=== PATIENT | male | born 1960 | race Caucasian/White ===

== ENCOUNTER 2017-05-23 17:57 | Emergency (ER) | payer OTHER ==
--- NOTE | 2017-05-25 19:28 | ED CLINICAL REPORT ---
Clinical Report - Physicians/Mid Levels [facility] [address] [place] [address] 05/23/2017 18:00 Patient: ZIA TRAMMELL Time Seen: 1825; initial patient contact. Arrived- By private vehicle. Historian- patient. HISTORY OF PRESENT ILLNESS Chief Complaint: SUICIDAL THOUGHTS. This started today. Recent drug use and alcohol consumption. Has been depressed and had suicidal thoughts. No delusions, self-injury inflicted or hallucinations. The symptoms are described as severe. No injury is present. Additional history - reports chronic back pain. states he is sick of it and doesn't want to live with it any more. states he spoke to spine surgeons and states they are "quacks". no numbness, weakness, tingling, inconctinence, urinary retention, saddle anesthesia, or fever. Similar symptoms previously: None. Recent medical care: Not recently seen/assessed. REVIEW OF SYSTEMS No headache, chest pain, abdominal pain, vomiting or black stools. No fever, sore throat, cough, difficulty breathing or skin rash. No enlarged lymph nodes. patient notes that his problems started with injury to his left foot. He suffered a fractured foot and due to that has had chronic pain in the foot and compensation gait that causes pain in the right hip and back. Has seen various surgeons about the foot and the latest one at [facility] will not operate on the left foot. He states he gets into pain and cannot get any prescription stronger than Tylenol from his PCP. As a result he binge drinks due to the pain and this is cause problems with his family and alcohol dependence. He has not seen the pain clinic. His frustration with the pain and the family's angry response to his alcohol binging have caused to feel suicidal. All systems otherwise negative, except as recorded above. PAST HISTORY See nurses notes. Depression. No history of prior suicide attempt. Alcoholism. No history of psychiatric illness. Medications: Simvastatin Oral. Metoprolol Tartrate Oral. Allergies: LIsinopril. Penicillins. SOCIAL HISTORY Smoker- current status unknown. Heavy alcohol use. History of drug use. Has social support. Has place to stay. ADDITIONAL NOTES The nursing notes have been reviewed. PHYSICAL EXAM Vital Signs: 05/23/2017 18:13 BP: 151/87. HR: 76. RR: 20. O2 saturation: 93%. Temp: 97.9 F. Blood pressure normal. Oxygen saturation normal. Appearance: Alert. No acute distress. (sleepy appearing.). Eyes: Pupils equal, round and reactive to light. Neck: Normal inspection. Neck supple. CVS: Normal heart rate and rhythm. Heart sounds normal. Respiratory: Breath sounds normal. Chest nontender. Abdomen: Soft and nontender. Back: Moderate tenderness in the right lower and left lower lumbar area. (no midline tenderness. no crepitus. no step offs.). Skin: Skin warm and dry. Normal skin color. Normal skin turgor. Extremities: Extremities exhibit normal ROM. No lower extremity edema. (Splint left foot). Psych / Neuro: Oriented X 3. Mood and affect normal. Speech normal. Cognition normal. Thought process and content normal. Insight and judgement normal. Cranial nerves normal (as tested). LABS, X-RAYS, AND EKG Laboratory Tests: UA-Culture if indicated: (KAYKAY: 05/23/2017 22:51) ( MsgRcvd 05/23/2017 23:23) Final results Test Result Flag Units (Reference) URINE COLOR YELLOW URINE APPEARANCE CLEAR URINE GLUCOSE NEGATIVE (NEGATIVE) URINE BILIRUBIN NEGATIVE (NEGATIVE) URINE KETONE NEGATIVE (NEGATIVE) URINE SPECIFIC GRAVITY 1.025 (1.010-1.030) URINE PH 5.5 (5.0-8.0) URINE PROTEIN NEGATIVE (NEGATIVE) URINE UROBILINOGEN 0.2 EU/dL (0.2-1.0) URINE NITRITE NEGATIVE (NEGATIVE) URINE BLOOD NEGATIVE (NEGATIVE) URINE LEUK ESTERASE NEGATIVE (NEGATIVE) URINE RBC NONE SEEN rbc/hpf (0-1) URINE WBC RARE wbc/hpf (0-1) URINE EPITHELIAL CELLS NONE SEEN EPI/hpf (0-5) URINE BACTERIA NONE SEEN (NONE SEEN) URINE COMMENT CULT NOT INDICATED URINE CULTURES ARE SET-UP BASED ON THE FOLLOWING CRITERIA:POSITIVE NITRITEPOSITIVE LEUKOCYTE ESTERASEGREATER THAN 10 WHITE BLOOD CELLSMODERATE (2+) OR GREATER BACTERIA CBC w Diff: (KAYKAY: 05/23/2017 18:59) ( MsgRcvd 05/23/2017 19:29) Final results Test Result Flag Units (Reference) WHITE BLOOD COUNT 5.5 K/uL (4.5-11.5) RED BLOOD COUNT 4.24 L M/uL (4.50-5.90) HEMOGLOBIN 13.6 gm/dL (13.5-17.5) HEMATOCRIT 39.9 L % (41.0-53.0) MEAN CELL VOLUME 94 fL (80-100) MEAN CORPUSCULAR HGB 32 pg (26-34) MEAN CORPUSCULAR HGB CONC 34 g/dL (31-37) RED CELL DISTRIBUTION WIDTH 14.9 H % (11.6-14.8) PLATELET COUNT 211 K/uL (150-400) NEUTROPHIL % 66.5 % (50-75) LYMPH % 26.1 % (25-40) MONO % 5.4 % (3-14) EOSINOPHIL % 1.5 % (0-4) BASOPHIL % 0.5 % (0-2) PT with INR: (KAYKAY: 05/23/2017 18:59) ( [facility] 05/23/2017 19:29) Final results Test Result Flag Units (Reference) INR 1.0 (0.8-1.2) Low Intensity Therapy: INR 1.5-2.0 PT range 18.5-23.1Mod.Intensity Therapy: INR 2.0-3.0 PT range 23.1-31.5High Intensity Therapy: INR 2.5-3.5 PT range 27.4-35.5High Intensity Therapy 2: INR 3.0-4.0 PT range 31.5-39.3 Urine Drug Screen: (KAYKAY: 05/23/2017 22:51) ( [facility] 05/23/2017 23:12) Final results Test Result Flag Units (Reference) AMPHETAMINE/METHAMPHETAMINE NEGATIVE (NEGATIVE) BARBITURATE NEGATIVE (NEGATIVE) BENZODIAZEPINE NEGATIVE (NEGATIVE) CANNABINOID NEGATIVE (NEGATIVE) COCAINE POSITIVE H (NEGATIVE) ECSTASY NEGATIVE (NEGATIVE) METHADONE NEGATIVE (NEGATIVE) OPIATE NEGATIVE (NEGATIVE) The urine drug screen is a qualitative screening test fordrug overdose and abuse. All screen results should beconsidered as presumptive.Drugs screened for are as follows:BenzodiazepinesCocaineAmphetamines/MetamphetaminesTHC (Tetrahydrocannabinol)OpiatesBarbituratesEcstasyMethadonePositive results are unconfirmed. For confirmation, notifythe lab for the specimen to be sent to the reference lab.All confirmations must be performed by a differentmethodology.The ingestion of natural herbal and plant productscontaining Ephedra/Ephedra metabolites can produce in urineone or more substances capable of cross reacting withamphetamine/methamphetamine immunoassays. These testsprovide a preliminary result only. A more specificalternative chemical method must be used to obtain aconfirmed analytical result. Salicylate Level: (KAKYAY: 05/23/2017 18:59) ( [facility] 05/23/2017 19:31) Final results Test Result Flag Units (Reference) SALICYLATE <2.8 L mg/dL (2.8-20) CMP: (KAYKAY: 05/23/2017 18:59) ( [facility] 05/23/2017 19:46) Final results Test Result Flag Units (Reference) GLUCOSE 82 mg/dL (70-110) BUN 15 mg/dL (7-18) CREATININE 1.1 mg/dL (0.6-1.3) Estimated GFR >60 mL/min Estimated GFR- >60 mL/min Note: Persistent reduction over 3 months in eGFR<60 mL/min/1.73 m2 defines CKD. Patients with eGFR values>=60 mL/min/1.73 m2 may also have CKD if evidence ofpersistent proteinuria. Additional information may be foundat www.kidney.org. SODIUM 143 mmol/L (136-145) POTASSIUM 3.3 L mmol/L (3.5-5.1) CHLORIDE 104 mmol/L (98-107) CARBON DIOXIDE 25 mmol/L (21-32) CALCIUM 8.3 L mg/dL (8.5-10.1) TOTAL PROTEIN 7.3 g/dL (6.4-8.2) ALBUMIN 4.2 g/dL (3.3-5.0) BILIRUBIN, TOTAL 0.8 mg/dL (0.0-1.0) ALKALINE PHOSPHATASE 71 U/L (46-116) AST (SGOT) 34 U/L (15-37) ALT (SGPT) 37 U/L (12-78) ACETAMINOPHEN < 2.0 L ug/mL (10-30) THYROID STIMULATING HORMONE 0.784 uIU/mL (0.30-3.74) . Pulse Oximetry: 05/25/2017 18:26 O2 saturation: 99%. (FIO2 - room air). Interpretation: normal. PROGRESS AND PROCEDURES Course of Care: IV NS Ativan 0.5 mg IV times 2 Toradol 30 mg IV 07:36 05/24/17. PAT team evaluation . Awaiting bed. 21:00. Care transferred due to change of shift. Pt stable and calmly resting. Patient/family counseled. CLINICAL IMPRESSION Suicidal ideation Uncomplicated alcohol intoxication with alcohol dependence. Alcohol withdrawal with irritability and agitation. No delirium, hallucinations or delirium tremens. Occasional substance abuse- cocaine with drug induced mood disorder (noted on tox screen). Chronic pain. (Electronically signed by Sukhdev Hughes DO 05/27/2017 8:32) Addenda for ZIA TRAMMELL VisitID: [id number] Date: 05/23/2017 05/25/2017 17:00 patient resting in bed. no acute distress. (Electronically signed by Zia Herrera Dr. - 05/25/2017 17:00)
--- NOTE | 2017-05-25 19:29 | ED ORDER SUMMARY ---
..... Patient: ZIA TRAMMELL OrderSheet [facility] VisitID: [id number] [place] [address] 56y, M Registration Date/Time: 05/23/2017 ORDER SHEET Weight: 95.2 kg (stated) Allergies: Penicillins, LIsinopril GENERAL ORDERS: CBC w Diff Urgent (18:05/23/2017 Jennifer Redman) (Ack 18:45 Alicia) (19:02 DMaziarka R.N.) CMP Urgent (18:05/23/2017 Jennifer Redman) (Ack 18:45 Alicia) (19:02 DMaziarka R.N.) UA-Culture if indicated Urgent (:05/23/2017 Jennifer Redman) (Ack 18:45 Alicia) (22:37 KPage-Kuchan R.N.) PT with INR Urgent (18:05/23/2017 Jennifer Redman) (Ack 18:45 Alicia) (19:02 DMaziarka R.N.) TSH Urgent (18:05/23/2017 Jennifer Redman) (Ack 18:45 Alicia) (19:02 DMaziarka R.N.) Salicylate Level Urgent (18:05/23/2017 Jennifer Redman) (Ack 18:45 Alicia) (19:02 DMaziarka R.N.) Acetaminophen Level Urgent (18:05/23/2017 Jennifer Redman) (Ack 18:45 Alicia) (19:02 DMaziarka R.N.) Urine Drug Screen Urgent (18:05/23/2017 Jennifer Redman) (Ack 18:45 Alicia) (22:36 KPage-Kuchan R.N.) Pulse oximeter (18:05/23/2017 Jennifer Redman) (Ack 18:45 Alicia) (18:52 DMaziarka R.N.) Breathalyzer (05:44 05/24/2017 Ivan BELL) (5:50 HSoule) Diet (Please order in EDF [employer]) (Regular Diet) (12:12 05/24/2017 LNations ER Tech1 per protocol) (Ack 12:15 LNations ER Tech1) (12:28 LNations ER Tech1) Diet (Please order in EDF [employer]) (Regular Diet) (17:41 05/24/2017 LNations ER Tech1 per protocol) (17:41 LNations ER Tech1) GC/Chlamydia, Urine (Urine, Clean Catch) (not clean catch) Urgent (20:57 05/24/2017 Jennifer Redman) (Ack 21:20 RKaruga) (21:57 JSanders R.N.) MEDICATION ORDERS: Xanax PO 0.5 mg (NOW) (22:16 05/24/2017 Toshia R.N. verbal order read back to Ivan BELL) (22:27 JSanders R.N.) Ibuprofen PO 400 mg (NOW) (10:44 05/25/2017 CHANDNIinterer R.N. verbal order read back to Jennifer Redman) (10:45 MWinterer R.N.) IV FLUIDS: IV NS : initial bolus 1000 mL (1000 mL/hr), then none - for X1 (NOW) (18:41 05/23/2017 Jennifer Redman) (18:53 Joezibarbaraa R.N.) Ativan IV 0.5 mg (NOW) (06:22 05/24/2017 Paris R.N. verbal order read back to Ivan BELL) (6:26 HSoule) Ativan IV 0.5 mg (NOW) (07:48 05/24/2017 Ivan BELL) (Ack 7:57 MWinterer R.N.) (8:05 MWinterer R.N.) Toradol IV 30 mg (NOW) (07:48 05/24/2017 Ivan BELL) (Ack 7:57 MWinterer R.N.) (8:05 MWinterer R.N.) Thiamine IV 100 mg (100 mg Add to IV solution) (07:54 05/24/2017 Ivan BELL) (Ack 7:57 MWinterer R.N.) (8:25 MWinterer R.N.) IV NS with Normal Saline 1 Liter, Multivitamin Concentrate Intravenous 1 amp/L: initial bolus none -, then 150 mL/hr for 6h (NOW); Routine (07:55 05/24/2017 Ivan BELL) (Ack 7:57 MWinterer R.N.) (8:24 MWinterer R.N.) Zofran IV 4 mg (NOW) (15:18 05/24/2017 KWmilly R.N. verbal order read back to Jennifer Redman) (15:20 KWmilly R.N.) Ativan IV 0.5 mg (HIGH ALERT MEDICATION, NOW) (16:38 05/24/2017 Jennifer Redman) (17:01 MWinterer R.N.) Ativan IV 0.5 mg (NOW) (08:24 05/25/2017 Ivan BELL) (Ack 8:29 MWinterer R.N.) (10:34 MWinterer R.N.) Zofran IV 4 mg (NOW) (08:25 05/25/2017 Ivan BELL) (Ack 8:29 MWinterer R.N.) (10:34 MWinterer R.N.) ORDER SHEET NOTES: [Electronically signed by Maty Alas R.N. (05:50 05/26/2017)] [Electronically signed by Sukhdev Hughes DO (08:32 05/27/2017)] [Electronically locked/signed by Maty Alas R.N. (05:50 05/26/2017)]
--- NOTE | 2017-05-25 19:29 | ED NURSING NOTES ---
Clinical Report - [facility] [place] [address] 05/23/2017 18:00 Patient: ZIA TRAMMELL TRIAGE Triage time 18:14. Acuity: LEVEL 4. Chief Complaint: DEPRESSION and (detoxing from "pills" and alcohol). BREATHALYZER: Breathalyzer (.[phone]). --18:22 Jaqueline Eaton R.N. 18:13 05/23/17. BP: 151/87. HR: 76. RR: 20. O2 saturation: 93%. Temp: 97.9 F. Pain level now 0/10. --18:22 Jaqueline Eaton R.N. Weight: 95.2 kg stated. Height/Length: 70 inches Per Patient. BMI: 30.1. --18:20 Jaqueline Eaton R.N. Medications Metoprolol Tartrate Oral. --18:15 Jaqueline Eaton R.N. Simvastatin Oral. --18:16 Jaqueline Eaton R.N. Allergies Penicillins. --18:17 Jaqueline Eaton R.N. LIsinopril. --18:17 Jaqueline Eaton R.N. History Arrived by private vehicle. Historian: patient. Primary physician (none). Treatment RECOVERY ENGINEER: None. PAST MEDICAL HX: Hypertension. SOCIAL HX: Heavy alcohol use; consumes a large amount of liquor by the bottle daily. History of heavy drug use: marijuana, crack. No methamphetamines. SELF HARM ASSESSMENT: A self harm assessment was performed. The patient answered "yes" to the question "Have you recently felt down, depressed, or hopeless?", "Have you noticed less interest or pleasure in doing things?" and "Do you have thoughts of harming or killing yourself?" and "no" to the question "Do you have any dangerous items in your possession?". In the ED the patient has been aggressive. --18:22 Jaqueline Eaton R.N. ( I want to kill myself.). --18:24 Jaqueline Eaton R.N. ( right hip pain says its "old age" denies falling). --18:25 Jaqueline Eaton R.N. PROBLEMS: Lung clots. Cardiac stents. Elevated Cholesterol. --18:18 Jaqueline Eaton R.N. The following entry was modified by Jaquelien Eaton R.N., 18:18 <<STRICKEN ENTRY-- Hypertension. --18:15 Jaqueline Eaton R.N. --END STRIKE>>. PHYSICAL ASSESSMENT GENERAL / NEURO / PSYCH: Appears in distress. Patient's mood/affect appears flat. Poor eye contact. He describes suicidal thoughts. RESPIRATORY: Respirations not labored. --18:23 Jaqueline Eaton R.N. GENERAL / NEURO / PSYCH: Alert. Oriented X 4. Appears in no acute distress. Speech within normal limits. Affect appears normal. Patient appears calm and cooperative. Good eye contact. Patient appears well-nourished and neat and clean. ( clean gown and bedding provided). RESPIRATORY: Respirations not labored. SKIN: Skin intact. Skin is warm and dry. Skin color is within normal limits. --23:34 Maricel-Lynsey Greenwood R.N. NURSING PROGRESS NOTES Patient identifiers checked. Call light placed in reach. Side rails up x 2. --18:23 Jaqueline Eaton R.N. 18:32 05/23/17. ( Pt belongings locked in locker #2.). --18:32 Emerald Bowens R.N. 18:53 05/23/2017 Site #1 started via IV in the left hand with an 18g angiocath, with aseptic technique and good blood return; one attempt. --18:53 Jaqueline Eaton R.N. 18:53 05/23/2017 Started IV Fluids IV NS (Saline); bolus of 1000 mL wide open then at 1000 mL/hr over 30 minute(s) via site #1 via IV pump. --18:53 Jaqueline Eaton R.N. Monitoring of patient in place. Suicide precautions initiated: a safety sweep of the room is ongoing. GENERAL / NEURO / PSYCH: Patient appears calm and cooperative. RESPIRATORY: No respiratory distress. SKIN: Skin is warm and dry. ( Patient reports that he has is tired of being in pain and would like to get his foot problems addressed so he can feel better.). --19:25 Chiiks Shirin 20:52 Patient contact made, no voiced questions or concerns at this time. Reason for wait provided. --21:01 McQuoid, Irma, ER Tech1 ( pt in poc, reports "this detoxing is hell" states drinking a fifth a day, "and I smoked a bunch of crack on wednesday" pt uses "recreationally" pt reports lower back and hip pain "its years of wear and tear"). --22:35 Lynsey Ferrer R.N. 22:35 05/23/17. BP: 121/74. HR: 74. RR: 17. O2 saturation: 97%. Pain level now: 05/01. --22:35 Lynsey Ferrer R.N. ( Breathalyzer 0.224). --22:58 Shirin Diop 23:02 05/23/17. BP: 125/68. HR: 65. RR: 15. O2 saturation: 98%. Pain level now: 05/01. --23:05 Lynsey Ferrer R.N. Checked patient name and birthdate: patient confirmed. Clean catch urine collected with return of yellow-colored urine; sample sent to lab for urinalysis and drug screen. Specimen labeled in the presence of the patient. ( pt "do you have any ativan, I take my daughters all the time, she doesn't care"). --23:05 Lynsey Ferrer R.N. Pulse oximeter and NIBP monitor placed on patient; monitor alarms on. --23:05 Lynsey Ferrer R.N. The patient reports no complaints and he is resting quietly. --00:00 Shirin Diop The patient is sleeping. --00:43 Shirin Diop 00:42 05/24/17. BP: 109/57. HR: 65. RR: 18. O2 saturation: 97% on room air. --00:43 Shirin Diop ( breathalyzer 0.187). --00:54 Shirin Diop The patient is sleeping. RESPIRATORY: No respiratory distress. SKIN: Skin is warm and dry. --01:53 Shirin Diop 01:53 05/24/17. BP: 98/51. HR: 67. RR: 20. O2 saturation: 94% on room air. --01:54 Shirin Diop ( Provider notified of vitals.). --01:54 Shirin Diop Monitoring of patient in place. Suicide precautions maintained. The patient is sleeping. RESPIRATORY: No respiratory distress. SKIN: Skin is warm and dry. --03:09 Shirin Diop 03:08 05/24/17. BP: 120/63. HR: 72. O2 saturation: 94% on room air. --03:09 Shirin Diop BREATHALYZER: Breathalyzer (0.088%). --05:50 Kristine Ann 04:00 05/24/17. BP: 116/63. HR: 77. RR: 18. O2 saturation: 95% on room air. --06:01 Shirin Diop <<STRICKEN ENTRY-- Suicide precautions maintained. The patient is sleeping. --06:01 Shirin Diop --END STRIKE>> Correction --06:01 Shirin Diop GENERAL / NEURO / PSYCH: Alert. Oriented X 4. Patient appears calm and cooperative. ( PAT team at bedside). --06:02 Shirin Diop 06:01 05/24/17. BP: 130/60. HR: 73. RR: 20. O2 saturation: 99% on room air. Pain level now: 07/01. --06:02 Shirin Diop 06:26 05/24/2017 Ativan (LORazepam) IVP 0.5 mg given over 1 minute(s) via site #1. Allergies verified, confirmed 5 rights and sedative warning given to the patient. IV patency established. IV site checked: no pain, redness, or swelling. IV flushed thoroughly pre- and post-medication administration. IVP given by RN. --06:26 Shirin Diop ( Patient reports he feels very anxious and sick. He states he feels like he is going to from withdrawal. Provider notified. See CPOE for orders. Patient updated regarding plan of care for further treatment and transfer. Patient agreeable to plan.). --06:27 ChikisTo henriqueznah ( PAT having some delays in placing patient, patient and PAT team discussing plan at this time.). --07:00 Shirin Diop 06:56 05/24/17. BP: 147/74. HR: 77. RR: 20. O2 saturation: 97% on room air. --07:00 Shirin Diop Care transferred and report given (Emerald Drake RN). --07:13 Shirin Diop 08:04 05/24/17. BP: 162/86. HR: 66. RR: 16. O2 saturation: 97% on room air. --08:04 Emerald Bowens R.N. 08:05/24/2017 Ativan (LORazepam) IVP 0.5 mg given over 1 minute(s) via site #1. Allergies verified, confirmed 5 rights and sedative warning given to the patient. IV patency established. IV site checked: no pain, redness, or swelling. IV flushed thoroughly pre- and post-medication administration. IVP given by RN. --08:05 Emerald Bowens R.N. 08:05/24/2017 Toradol IVP 30 mg given over 1 minute(s) via site #1. Allergies verified and confirmed 5 rights. IV patency established. IV site checked: no pain, redness, or swelling. IV flushed thoroughly pre- and post-medication administration. IVP given by RN. --08:05 Emerald Bowens R.N. 08:05/24/17. The patient is calm and resting quietly. --08:05 Emerald Bowens R.N. 08:23 05/24/2017 Started bag #1 1000 mL IV Fluids IV NS (Saline); at 150 mL/hr with Multivitamin [IVPB] 1unit dose and Thiamine [IVPB] 100mg over 6 hour(s) via site #1 via IV pump. Allergies verified and confirmed 5 rights. IV patency established. IV site checked: no pain, redness, or swelling. IV flushed thoroughly pre- and post-medication administration. --08:24 Emerald Bowens R.N. 08:25 05/24/2017 Thiamine (Vitamin B-1) IVP 100 mg given over 6 hour(s) via site #1. Allergies verified and confirmed 5 rights. IV patency established. IV site checked: no pain, redness, or swelling. IV flushed thoroughly pre- and post-medication administration. IVP given by RN (added to IV bag). --08:25 Emerald Bowens R.N. 09:15 05/24/17. BP: 171/82. HR: 72. RR: 16. O2 saturation: 99% on room air. --09:16 Emerald Bowens R.N. 09:16 05/24/17. The patient is sleeping. --09:16 Emerald Bowens R.N. 11:28 05/24/17. The patient is sleeping. RESPIRATORY: No respiratory distress. SKIN: Skin is warm and dry. --11:28 Emerald Bowens R.N. 11:28 05/24/17. HR: 68. RR: 12. O2 saturation: 99% on room air. --11:29 Emerald Bowens R.N. ( Pt. is given lunch.). --12:30 Christie Walters ER Tech1 20:00 05/23/2017 IV Fluids IV NS Discontinued: bag #1 completed. Total amount infused: 1000 mL. IV patency established. IV site checked: no pain, redness, or swelling. IV flushed thoroughly. --05:49 Maty Alas R.N. 14:39 05/24/17. ( Pt given ice water. Pt updated on wait and plan of care. Pt is agreeable and cooperative.). --14:39 Emerald Bowens R.N. 15:15 05/24/2017 Zofran (Ondansetron HCl) IVP 4 mg given over 2 minute(s) via site #1. Allergies verified and confirmed 5 rights. IV patency established. IV site checked: no pain, redness, or swelling. IV flushed thoroughly pre- and post-medication administration. IVP given by RN. --15:20 Pam Tripathi R.N. 15:22 05/24/17. The patient reports no complaints and he is calm and resting quietly. --15:22 Pam Tripathi R.N. 16:26 05/24/17. BP: 163/78. HR: 72. RR: 16. O2 saturation: 98% on room air. --16:27 Emerald Bowens R.N. 16:46 05/24/2017 Ativan (LORazepam) IVP 1 mg given over 1 minute(s) via site #1. Allergies verified, confirmed 5 rights and sedative warning given to the patient. IV patency established. IV site checked: no pain, redness, or swelling. IV flushed thoroughly pre- and post-medication administration. IVP given by RN. --17:01 Emerald Bowens R.N. 17:26 05/24/17. The patient is sleeping. SKIN: Skin is warm and dry. Skin color within normal limits. --17:26 Emerald Bowens R.N. 18:36 05/24/17. Reassessment after medication administered. He reports no complaints, he is calm and resting quietly and he has had no adverse reaction. Overall patient status- he states feels better. ( Pt given dinner and ice water. Pt also provided reading materials and his reading glasses. Pt updated on ETA of PAT brick sorter. Pt is cooperative with care plan.). --18:36 Emerald Bowens R.N. 18:36 05/24/17. BP: 164/85. HR: 66. RR: 18. O2 saturation: 95% on room air. --18:37 Emerald Bowens R.N. late entry - 17:45. ( This RN contacted [facility] team to request a new evaluation of pt per Brian's instructions. PAT team will page Ronda to assess pt.). --18:44 Emerald Bowens R.N. 19:07 05/24/17. Care transferred and report given (TARAN Rutledge). --19:07 Emerald Bowens R.N. Care transferred and report received (Emerald Drake RN). --19:17 Maty Alas R.N. 19:17 05/24/17. The patient is calm and resting quietly. GENERAL / NEURO / PSYCH: Alert. Oriented X 4. Patient appears calm and cooperative. Affect appears normal. RESPIRATORY: No respiratory distress. SKIN: Skin is warm and dry. Skin color within normal limits. --19:17 Maty Alas R.N. 19:17 05/24/17. HR: 69. RR: 18. O2 saturation: 96% on room air. --19:18 Maty Alas R.N. 19:29 05/24/17. ( Ronda from [facility] has arrived, information and chart given to her to review). --19:29 Maty Alas R.N. late entry - 19:30 05/24/17. ( PAT counselor in with patient). --19:40 Maty Alas R.N. 20:03 05/24/17. ( Ronda from [facility] is out of patients room now). --20:03 Maty Alas R.N. 20:05 05/24/17. ( PAT counselor informed RN that patient is requesting STD check, physician informed of this). --20:05 Maty Alas R.N. 20:40 05/24/17. ( Jim can do screening after midnight. PAT team counselor Ronda informed us that [facility] will screen him for a place with them but has to happen after midnight since they have another screening to do. Ronda's assessment should work for that screening. Will await their call). --20:40 Maty Alas R.N. 21:04 05/24/17. ( Patient requesting something for sleep. Patient feeling agitated and his thoughts are agitating). --21:04 Maty Alas R.N. 21:02 05/24/17. BP: 154/86 (regular adult cuff) taken on the left arm, while sitting. HR: 66. RR: 18. O2 saturation: 99% on room air. Pain level now: 5/10. Additional comments: back and right hip pain. --21:04 Maty Alas R.N. 22:27 05/24/2017 Xanax (ALPRAZolam) PO Tablets 0.5 mg given. Allergies verified and confirmed 5 rights. --22:27 Maty Alas R.N. 22:31 05/24/17. ( Patient resting quietly, easily aroused. Nothing needed at this time. Patient given xanax for sleep per Dr Roman). --22:31 Maty Alas R.N. 00:18 05/25/17. ( Patient resting quietly). --00:18 Maty Alas R.N. 21:50. Patient ID band checked for patient name and birthdate: patient confirmed. Instructions provided to collect clean catch urine and patient verbalized understanding urine collected with return of yellow-colored clear urine; odor is normal; sample sent to lab for urinalysis. Specimen labeled in the presence of the patient. --00:31 Ann Carmona 01:03 05/25/17. ( Patient #3 on waitlist for [facility]). --01:03 Maty Alas R.N. 02:02 05/25/17. ( Called Letty for number to [facility] again because [facility] has not called to screen patient yet, was on hold for 50 minutes and when [facility] answered they gave ER number for social work, left message requesting a phone call back.). --02:02 Maty Alas R.N. 02:09 05/25/17. ( Christina PEREIRA from [facility], patient is number 3 on wait list to be screened, she says we will have to call after 1100 05/25/17 to see where patient is on the list because she has already done her two screenings.). --02:09 Maty Alas R.N. 02:12 05/25/17. ( physician notified of [facility] response). --02:12 Maty Alas R.N. 03:26 05/25/17. ( Patient resting quietly, easily aroused.). --03:26 Maty Alas R.N. 04:47 05/25/17. ( Patient awoke, requested to turn off the monitors due to the noise, turned off monitors and gave another warm blanket for comfort. Patient informed about [facility] waitlist and that we can call them again at 1100 this morning, also informed him I will call for current wait list number at [facility]. He states his understanding). --04:47 Maty Alas R.N. 06:00 05/25/17. ( Patient still #3 on wait list for [facility]). --06:00 Maty Alas R.N. 06:40 05/25/17. The patient reports no complaints and he is sleeping. RESPIRATORY: No respiratory distress. SKIN: Skin is warm and dry. Skin color within normal limits. --06:40 Maty Alas R.N. 07:08 05/25/17. ( Requested breakfast tray for patient). --07:08 Maty Alas R.N. 07:08 05/25/17. Care transferred and report given (TARAN Corbin). --07:08 Maty Alas R.N. 07:09 05/25/17. ( Patient up to use restroom). --07:10 Maty Alas R.N. 07:44 05/25/17. ( Pt calm and cooperative. Pt ambulated to . Pt breakfast ordered.). --07:44 Emerald Bowens R.N. 08:30 05/25/2017 Ativan (LORazepam) IVP 0.5 mg given over 1 minute(s) via site #1. Allergies verified, confirmed 5 rights and sedative warning given to the patient. IV patency established. IV site checked: no pain, redness, or swelling. IV flushed thoroughly pre- and post-medication administration. IVP given by RN. --10:34 Emerald Bowens R.N. 09:26 05/25/17. The patient is sleeping. --09:26 Emerald Bowens R.N. 10:30 05/25/2017 Zofran (Ondansetron HCl) IVP 4 mg given over 1 minute(s) via site #1. Allergies verified and confirmed 5 rights. IV patency established. IV site checked: no pain, redness, or swelling. IV flushed thoroughly pre- and post-medication administration. IVP given by RN. --10:34 Emerald Bowens R.N. 10:45 05/25/2017 Ibuprofen PO 400 mg given. Allergies verified and confirmed 5 rights. --10:45 Emerald Bowens R.N. 11:26 05/25/17. BP: 131/64. HR: 56. RR: 20. O2 saturation: 99%. --11:26 Sukhdev Szymanski, ER Tech1 11:56 05/25/17. The patient is sleeping. --11:56 Emerald Bowens R.N. 12:59 05/25/17. ( Pt eating lunch. Pt updated with care plan and wait for bed situation. Pt calm and cooperative.). --12:59 Emerald Bowens R.N. 15:55 05/25/17. ( Pt calm, resting quietly and reading a magazine. Pt given snacks and water. Pt updated on bed wait, pt agreeable with plan of care.). --15:55 Emerald Bowens R.N. 18:26 05/25/17. BP: 152/89. HR: 60. RR: 18. O2 saturation: 99% on room air. --18:27 Emerald Bowens R.N. 18:27 05/25/17. GENERAL / NEURO / PSYCH: Alert. Oriented X 4. Patient appears calm and cooperative. Affect appears normal. SKIN: Skin is warm and dry. Skin color within normal limits. --18:28 Emerald Bowens R.N. 18:30 05/25/17. ( Pt informed of wait for insurance authorization to be transferred to [facility]. Pt is agreeable to treatment plan. Pt c/o nausea after dinner.). --18:30 Emerald Bowens R.N. ( rec call from [facility] with authorization for pt- 3 days by Jacki Bustos [phone] . call then placed to [facility] to provide info to cloth bleaching supervisor). --18:54 Lynsey Ferrer R.N. ( ( rec call back from [facility], [facility] admissions, pt accepted, they have 2 admissions ahead and will call back when they have a nurse to receive report and ready bed, zoila 2-3 hours). 18:56 Lynsey Ferrer R.N.). --18:58 Lynsey Ferrer R.N. 21:32 05/25/17. BP: 154/84. HR: 54. RR: 18. O2 saturation: 98% on room air. --21:33 Radha Romero R.N. 21:35 05/25/17. Assisted patient (Stood at the sink and wash. Clean sheets to bed. VS stable.). --21:35 Radha Romero R.N. ( PT sleeping , equal rise/fall of chest, continuing to wait on [facility] return call for transfer to facility.). --23:31 Lynsey Ferrer R.N. Care transferred and report received (Lynsey, RN). --00:23 Maty Alas R.N. late entry - 01:05 05/26/17. The patient is sleeping. RESPIRATORY: No respiratory distress. SKIN: Skin is warm and dry. Skin color within normal limits. --05:45 Maty Alas R.N. 05:50 05/26/2017 IV Fluids IV NS Discontinued: bag #2 completed. Total amount infused: 1000 mL. IV patency established. IV site checked: no pain, redness, or swelling. IV flushed thoroughly. --05:50 Maty Alas R.N. DISPOSITION / DISCHARGE 02:13 05/26/17. BP: 147/86 (large adult cuff) taken on the left arm, via an automated monitor, while lying. HR: 49 (regular). RR: 16. O2 saturation: 96% on room air. Temp: 98.3 F. Pain level now: 0/10. Additional comments: Patient say he has no pain but hurts all over from being in the ED bed for so long. --02:15 Ann Carmona 02:19 05/26/2017 Site #1 removed upon discharge. Bandaid applied. --02:19 Maty Alas R.N. 02:21 05/26/17. Transferred. Summary of care provided to EMS and transfer facility via paper and fax ([facility]). Bed obtained. ( Patient accepted to [facility], he needs to go to ER and check in through registration). --02:21 Maty Alas R.N. Departure time: 02:30 May 26 2017. --02:32 Maty Alas R.N. late entry - 02:35 05/26/17. Patient's personal items include: shirt, pants, undergarments, coat, socks and shoes, All belongings, excluding his eye glasses and cell phone, transported with patient and EMS crew. Patient holding eye glasses and cell phone in hand; items were placed in belongings bag and transported with the patient. --05:48 Maty Alas R.N. 02:40 05/26/17. ( Called Yina at [facility] informing her the ETA for patient is 50-60 minutes. She states her understanding). --02:40 Maty Alas R.N. Locked/Released at 05/26/2017 5:50 by Maty Alas R.N.
--- NOTE | 2017-05-25 19:29 | ED ORDER SUMMARY ---
..... Patient: ZIA TRAMMELL OrderSheet [facility] VisitID: [id number] [place] [address] 56y, M Registration Date/Time: 05/23/2017 ORDER SHEET Weight: 95.2 kg (stated) Allergies: Penicillins, LIsinopril GENERAL ORDERS: CBC w Diff Urgent (18:05/23/2017 Jennifer Redman) (Ack 18:45 Alicia) (19:02 DMaziarka R.N.) CMP Urgent (18:05/23/2017 Jennifer Redman) (Ack 18:45 Alicia) (19:02 DMaziarka R.N.) UA-Culture if indicated Urgent (:05/23/2017 Jennifer Redman) (Ack 18:45 Alicia) (22:37 KPage-Kuchan R.N.) PT with INR Urgent (18:05/23/2017 Jennifer Redman) (Ack 18:45 Alicia) (19:02 DMaziarka R.N.) TSH Urgent (18:05/23/2017 Jennifer Redman) (Ack 18:45 Alicia) (19:02 DMaziarka R.N.) Salicylate Level Urgent (18:05/23/2017 Jennifer Redman) (Ack 18:45 Alicia) (19:02 DMaziarka R.N.) Acetaminophen Level Urgent (18:05/23/2017 Jennifer Redman) (Ack 18:45 Alicia) (19:02 DMaziarka R.N.) Urine Drug Screen Urgent (18:05/23/2017 Jennifer Redman) (Ack 18:45 Alicia) (22:36 KPage-Kuchan R.N.) Pulse oximeter (18:05/23/2017 Jennifer Redman) (Ack 18:45 Alicia) (18:52 DMaziarka R.N.) Breathalyzer (05:44 05/24/2017 Ivan BELL) (5:50 HSoule) Diet (Please order in [facility]) (Regular Diet) (12:12 05/24/2017 LNations ER Tech1 per protocol) (Ack 12:15 LNations ER Tech1) (12:28 LNations ER Tech1) Diet (Please order in [facility]) (Regular Diet) (17:41 05/24/2017 LNations ER Tech1 per protocol) (17:41 LNations ER Tech1) GC/Chlamydia, Urine (Urine, Clean Catch) (not clean catch) Urgent (20:57 05/24/2017 Jennifer Redman) (Ack 21:20 RKaruga) (21:57 JSanders R.N.) MEDICATION ORDERS: Xanax PO 0.5 mg (NOW) (22:16 05/24/2017 Toshia R.N. verbal order read back to Ivan BELL) (22:27 JSanders R.N.) Ibuprofen PO 400 mg (NOW) (10:44 05/25/2017 CHANDNIinterer R.N. verbal order read back to Jennifer Redman) (10:45 MWinterer R.N.) IV FLUIDS: IV NS : initial bolus 1000 mL (1000 mL/hr), then none - for X1 (NOW) (18:41 05/23/2017 Jennifer Redman) (18:53 Joezibarbaraa R.N.) Ativan IV 0.5 mg (NOW) (06:22 05/24/2017 Paris R.N. verbal order read back to Ivan BELL) (6:26 HSoule) Ativan IV 0.5 mg (NOW) (07:48 05/24/2017 Ivan BELL) (Ack 7:57 MWinterer R.N.) (8:05 MWinterer R.N.) Toradol IV 30 mg (NOW) (07:48 05/24/2017 Ivan BELL) (Ack 7:57 MWinterer R.N.) (8:05 MWinterer R.N.) Thiamine IV 100 mg (100 mg Add to IV solution) (07:54 05/24/2017 Ivan BELL) (Ack 7:57 MWinterer R.N.) (8:25 MWinterer R.N.) IV NS with Normal Saline 1 Liter, Multivitamin Concentrate Intravenous 1 amp/L: initial bolus none -, then 150 mL/hr for 6h (NOW); Routine (07:55 05/24/2017 Ivan BELL) (Ack 7:57 MWinterer R.N.) (8:24 MWinterer R.N.) Zofran IV 4 mg (NOW) (15:18 05/24/2017 KWmilly R.N. verbal order read back to Jennifer Redman) (15:20 KWmilly R.N.) Ativan IV 0.5 mg (HIGH ALERT MEDICATION, NOW) (16:38 05/24/2017 Jennifer Redman) (17:01 MWinterer R.N.) Ativan IV 0.5 mg (NOW) (08:24 05/25/2017 Ivan BELL) (Ack 8:29 MWinterer R.N.) (10:34 MWinterer R.N.) Zofran IV 4 mg (NOW) (08:25 05/25/2017 Ivan BELL) (Ack 8:29 MWinterer R.N.) (10:34 MWinterer R.N.) ORDER SHEET NOTES: [Electronically signed by Maty Alas R.N. (05:50 05/26/2017)] [Electronically signed by Sukhdev Hughes DO (08:32 05/27/2017)] [Electronically locked/signed by Maty Alas R.N. (05:50 05/26/2017)]
--- NOTE | 2017-05-27 08:32 | ED MAR SUMMARY ---
..... Medication Administration Record [facility] [address] [place] [address] Patient: ZIA TRAMMELL Visit ID: [id number] 56y, M Weight: 95.2 kg Height/Length: 70 in BMI: 30.1 ALLERGIES: LIsinopril, Penicillins Start 18:53 05/23/2017 Jaqueline Eaton R.N., Stop 20:00 05/23/2017 Maty Alas R.N. Medication Administered: IV NS (SALINE), Dose: IV Fluids over 30 minute(s), Rate: 1000 mL/hr, Bolus: 1000 mL wide open, Site: #1 left hand. Medication Ordered: IV NS : initial bolus 1000 mL (1000 mL/hr), then none - for X1 (NOW). Given 06:26 05/24/2017 Shirin Diop, Medication Administered: ATIVAN [IVP] (LORAZEPAM), Dose: 0.5 mg IVP over 1 minute(s), Site: #1 left hand. Medication Ordered: Ativan IV 0.5 mg (NOW). Given 08:05 05/24/2017 Emerald Bowens R.N. Medication Administered: ATIVAN [IVP] (LORAZEPAM), Dose: 0.5 mg IVP over 1 minute(s), Site: #1 left hand. Medication Ordered: Ativan IV 0.5 mg (NOW). Given 08:05 05/24/2017 Emerald Bowens R.N. Medication Administered: TORADOL [IVP], Dose: 30 mg IVP over 1 minute(s), Site: #1 left hand. Medication Ordered: Toradol IV 30 mg (NOW). Start 08:23 05/24/2017 Emerald Bowens R.N., Stop 05:50 05/26/2017 Maty Alas R.N. Medication Administered: IV NS (SALINE), Dose: IV Fluids over 6 hour(s), With: MULTIVITAMIN [IVPB] 1 unit dose; THIAMINE [IVPB] 100 mg, Rate: 150 mL/hr, Dispensed: 1000 mL bag, Site: #1 left hand. Medication Ordered: IV NS with Normal Saline 1 Liter, Multivitamin Concentrate Intravenous 1 amp/L: initial bolus none -, then 150 mL/hr for 6h (NOW); Routine. Given 08:25 05/24/2017 Emerald Bowens R.N. Medication Administered: THIAMINE [IVP] (VITAMIN B-1), Dose: 100 mg IVP over 6 hour(s), Site: #1 left hand. Medication Ordered: Thiamine IV 100 mg (100 mg Add to IV solution). Given 15:15 05/24/2017 Pam Tripathi R.N. Medication Administered: ZOFRAN [IVP] (ONDANSETRON HCL), Dose: 4 mg IVP over 2 minute(s), Site: #1 left hand. Medication Ordered: Zofran IV 4 mg (NOW). Given 16:46 05/24/2017 Emerald Bowens R.N. Medication Administered: ATIVAN [IVP] (LORAZEPAM), Dose: 1 mg IVP over 1 minute(s), Site: #1 left hand. Medication Ordered: Ativan IV 0.5 mg (HIGH ALERT MEDICATION, NOW). Given 22:27 05/24/2017 Maty Alas R.N. Medication Administered: XANAX [PO] (ALPRAZOLAM), Dose: 0.5 mg Tablets PO. Medication Ordered: Xanax PO 0.5 mg (NOW). Given 08:30 05/25/2017 Emerald Bowens R.N. Medication Administered: ATIVAN [IVP] (LORAZEPAM), Dose: 0.5 mg IVP over 1 minute(s), Site: #1 left hand. Medication Ordered: Ativan IV 0.5 mg (NOW). Given 10:30 05/25/2017 Emerald Bowens R.N. Medication Administered: ZOFRAN [IVP] (ONDANSETRON HCL), Dose: 4 mg IVP over 1 minute(s), Site: #1 left hand. Medication Ordered: Zofran IV 4 mg (NOW). Given 10:45 05/25/2017 Emerald Bowens R.N. Medication Administered: IBUPROFEN [PO], Dose: 400 mg PO. Medication Ordered: Ibuprofen PO 400 mg (NOW).
--- NOTE | 2017-05-27 08:32 | ED DISCHARGE INSTRUCTIONS ---
Patient: ZIA TRAMMELL General Instructions [facility] VisitID: [id number] [place] [address] 56y, M Registration Date/Time: 05/23/2017 Suicidal ideation Uncomplicated alcohol intoxication with alcohol dependence. Alcohol withdrawal with irritability and agitation. No delirium, hallucinations or delirium tremens. Occasional substance abuse- cocaine with drug induced mood disorder (noted on tox screen). Chronic pain. ADDITIONAL INFORMATION Depression Depression is one of the most common mental health problems today. It is not just a state of unhappiness or sadness. It is a true disease. The cause seems to be related to a decrease in chemicals that transmit signals in the brain. Having a family history of depression, alcoholism or suicide increases the risk. Chronic illness, chronic pain, migraine headaches and high emotional stress also increase the risk. Depression can cause many different symptoms, such as: -- Loss of appetite -- Over-eating -- Not being able to sleep -- Sleeping too much -- Tiredness not related to physical exertion -- Restlessness or irritability -- Slowness of movement or speech -- Feeling depressed or withdrawn -- Loss of interest in things you once enjoyed -- Difficulty in concentrating, poor memory, have trouble making decisions -- Thoughts of harming or killing oneself, or thoughts that life is not worth living -- Low self-esteem The best treatment for depression is a combination of medicine and psychotherapy. Antidepressant medicines can reduce suffering and can improve the ability to function during the depressed period. Therapy can offer emotional support and help you understand emotional factors that may be causing the depression. Home Care: 1) Be kind to yourself. Make it a point to do things that you enjoy (gardening, walking in nature, going to a movie, etc.). Reward yourself for small successes. 2) Take care of your physical body. Eat a balanced diet (low in saturated fat and high in fruits and vegetables). Establish an exercise plan at least 3 times a week for 30 minutes. Even mild-moderate exercise (like brisk walking) can make you feel better. 3) Avoid alcohol, which can make depression worse. Follow-Up with your doctor as advised. It is important to keep in contact with a health care provider until your symptoms begin to improve. Get Prompt Medical Attention if any of the following occur: -- Feeling extreme depression, fear, anxiety, or anger toward yourself or others -- Feeling out of control -- Feeling that you may try to harm yourself or another -- Hearing voices that others do not hear -- Seeing things that others do not see -- Cant sleep or eat for 3 days in a row Alcohol Intoxication Alcohol intoxication occurs when you drink alcohol faster than your liver can remove it from your system. Alcohol intoxication affects your judgment and coordination. Very high blood alcohol levels can cause coma, very slow breathing and even . If you drink alcohol every day, this may gradually cause permanent damage to your liver, brain, heart, pancreas and other organs. Alcohol use during may cause permanent damage to the growing baby. Home Care: Do not drink any more alcohol. DO NOT DRIVE until all effects of the alcohol have worn off. Get lots of rest over the next few days. Drink plenty of water and other non-alcoholic liquids. Try to eat regular meals. If you have been drinking heavily on a daily basis, you may go through alcohol withdrawl. This is also called the shakes or DTs. The usual symptoms last 3 to 4 days and may include nervousness, shakiness, nausea, sweating or sleeplessness. During this time, it is best that you stay with family or friends who can help and support you. You can also admit yourself to a residential detox program. If your symptoms are severe, contact your doctor for medicines to help. Follow Up: If alcohol is causing a problem in your life, these and other organizations can help you: Alcoholics Anonymous offers support through a self-help fellowship. There are no dues or fees. See the Yellow Pages and call for time and place of meetings. www.aa.org [employer] offers support to families of alcohol users. 559.764.1044 www.al-anon.org [employer] [place] On Alcoholism And Drug Dependence 676-410-6759 www.ncadd.org There are also inpatient or residential alcohol detox programs. Check the Internet or phonebook Yellow Pages under Drug Abuse & Treatment Centers. Get Prompt Medical Attention if any of the following occur: there) Alcohol Withdrawal Alcohol withdrawal symptoms occur if you have been drinking steadily for at least several days, and your body gets used to the effect of alcohol. When you suddenly stop drinking (or, even just cut down your daily intake but continue to drink), you may develop alcohol withdrawal, also called the The usual symptoms last 3-4 days and include nervousness, shakiness, nausea, sweating, sleeplessness. In severe cases hallucinations (seeing things that are not there) and seizures can occur. Home Care: You will need plenty of rest and fluids over the next several days. Eat regular meals. Of course, do not drink any more alcohol. During this time, it is best that you stay with family or friends who can help and support you. You can also admit yourself to a residential detox program. Do not drive until all symptoms are gone and you are feeling better. If you were given sedative medication to reduce your symptoms, do not take it more often than prescribed and never take it with alcohol. Follow Up: Once you have gone through the withdrawal symptoms, you have fought half of the kohli. To avoid the risk of returning to your previous drinking pattern, it is essential that you get follow-up support and treatment. Alcoholics Anonymous offers support through a self-help fellowship. There are no dues or fees. See the Yellow Pages and call for time and place of meetings. www.aa.org [employer]An[employer] offers support to families of alcohol users. 910.132.4983 www.al-anon.org [employer] [place] On Alcoholism And Drug Dependence 297-168-4489 www.ncadd.org Residential alcohol detox programs are available. Check the Yellow Pages under Drug Abuse & Treatment Centers. Get Prompt Medical Attention if any of the following occur: Severe shakiness Hallucinations Seizure Fever over 100.5 F (38.0 C) oral Headache, confusion, extreme drowsiness, inability to awaken Increasing upper abdominal pain Repeated vomiting or vomiting blood You have been given the following additional information: Depression Alcohol Intoxication Alcohol Withdrawal (Electronically signed by Sukhdev Hughes DO 05/27/2017 8:32)
--- NOTE | 2017-05-27 08:32 | ED MED RECONCILIATION SUMMARY ---
Patient: ZIA TRAMMELL Medication Reconciliation Report [facility] VisitID: [id number] [place] [address] 56y, M Registration Date/Time: 05/23/2017 Weight: 95.2 kg Height/Length: 70 in. BMI: 30.1 ALLERGIES: LIsinopril, Penicillins The patient's Home Medications are listed below: THE FOLLOWING MEDICATIONS NEED TO BE RECONCILED: Metoprolol Tartrate Oral Simvastatin Oral The source(s) of the original Home Medication information: Not obtained. The following Medications were given to the patient in the Emergency Department: IV NS IV Fluids bolus 1000 mL wide open, then 1000 mL/hr, administered: 05/23/2017 6:53:00 PM Ativan [IVP] IVP 0.5 mg, administered: 05/24/2017 6:26:00 AM Ativan [IVP] IVP 0.5 mg, administered: 05/24/2017 8:05:00 AM Toradol [IVP] IVP 30 mg, administered: 05/24/2017 8:05:00 AM IV NS IV Fluids bolus 0, then 150 mL/hr with Multivitamin [IVPB] 1 unit dose and Thiamine [IVPB] 100 mg, administered: 05/24/2017 8:23:00 AM Thiamine [IVP] IVP 100 mg, administered: 05/24/2017 8:25:00 AM Zofran [IVP] IVP 4 mg, administered: 05/24/2017 3:15:00 PM Ativan [IVP] IVP 1 mg, administered: 05/24/2017 4:46:00 PM Xanax [PO] PO 0.5 mg, administered: 05/24/2017 10:27:00 PM Ativan [IVP] IVP 0.5 mg, administered: 05/25/2017 8:30:00 AM Zofran [IVP] IVP 4 mg, administered: 05/25/2017 10:30:00 AM Ibuprofen [PO] PO 400 mg, administered: 05/25/2017 10:45:00 AM The following Medications were prescribed to the patient: None.
--- NOTE | 2017-05-27 08:32 | ED MED RECONCILIATION SUMMARY ---
Patient: ZIA TRAMMELL Medication Reconciliation Report [facility] VisitID: [id number] [place] [address] 56y, M Registration Date/Time: 05/23/2017 Weight: 95.2 kg Height/Length: 70 in. BMI: 30.1 ALLERGIES: LIsinopril, Penicillins The patient's Home Medications are listed below: THE FOLLOWING MEDICATIONS NEED TO BE RECONCILED: Metoprolol Tartrate Oral Simvastatin Oral The source(s) of the original Home Medication information: Not obtained. The following Medications were given to the patient in the Emergency Department: IV NS IV Fluids bolus 1000 mL wide open, then 1000 mL/hr, administered: 05/23/2017 6:53:00 PM Ativan [IVP] IVP 0.5 mg, administered: 05/24/2017 6:26:00 AM Ativan [IVP] IVP 0.5 mg, administered: 05/24/2017 8:05:00 AM Toradol [IVP] IVP 30 mg, administered: 05/24/2017 8:05:00 AM IV NS IV Fluids bolus 0, then 150 mL/hr with Multivitamin [IVPB] 1 unit dose and Thiamine [IVPB] 100 mg, administered: 05/24/2017 8:23:00 AM Thiamine [IVP] IVP 100 mg, administered: 05/24/2017 8:25:00 AM Zofran [IVP] IVP 4 mg, administered: 05/24/2017 3:15:00 PM Ativan [IVP] IVP 1 mg, administered: 05/24/2017 4:46:00 PM Xanax [PO] PO 0.5 mg, administered: 05/24/2017 10:27:00 PM Ativan [IVP] IVP 0.5 mg, administered: 05/25/2017 8:30:00 AM Zofran [IVP] IVP 4 mg, administered: 05/25/2017 10:30:00 AM Ibuprofen [PO] PO 400 mg, administered: 05/25/2017 10:45:00 AM The following Medications were prescribed to the patient: None.
--- NOTE | 2017-05-27 08:32 | ED MAR SUMMARY ---
..... Medication Administration Record [facility] [address] [place] [address] Patient: ZIA TRAMMELL Visit ID: [id number] 56y, M Weight: 95.2 kg Height/Length: 70 in BMI: 30.1 ALLERGIES: LIsinopril, Penicillins Start 18:53 05/23/2017 Jaqueline Eaton R.N., Stop 20:00 05/23/2017 Maty Alas R.N. Medication Administered: IV NS (SALINE), Dose: IV Fluids over 30 minute(s), Rate: 1000 mL/hr, Bolus: 1000 mL wide open, Site: #1 left hand. Medication Ordered: IV NS : initial bolus 1000 mL (1000 mL/hr), then none - for X1 (NOW). Given 06:26 05/24/2017 Shirin Diop, Medication Administered: ATIVAN [IVP] (LORAZEPAM), Dose: 0.5 mg IVP over 1 minute(s), Site: #1 left hand. Medication Ordered: Ativan IV 0.5 mg (NOW). Given 08:05 05/24/2017 Emerald Bowens R.N. Medication Administered: ATIVAN [IVP] (LORAZEPAM), Dose: 0.5 mg IVP over 1 minute(s), Site: #1 left hand. Medication Ordered: Ativan IV 0.5 mg (NOW). Given 08:05 05/24/2017 mEerald Bowens R.N. Medication Administered: TORADOL [IVP], Dose: 30 mg IVP over 1 minute(s), Site: #1 left hand. Medication Ordered: Toradol IV 30 mg (NOW). Start 08:23 05/24/2017 Emerald Bowens R.N., Stop 05:50 05/26/2017 Maty Alas R.N. Medication Administered: IV NS (SALINE), Dose: IV Fluids over 6 hour(s), With: MULTIVITAMIN [IVPB] 1 unit dose; THIAMINE [IVPB] 100 mg, Rate: 150 mL/hr, Dispensed: 1000 mL bag, Site: #1 left hand. Medication Ordered: IV NS with Normal Saline 1 Liter, Multivitamin Concentrate Intravenous 1 amp/L: initial bolus none -, then 150 mL/hr for 6h (NOW); Routine. Given 08:25 05/24/2017 Emerald Bowens R.N. Medication Administered: THIAMINE [IVP] (VITAMIN B-1), Dose: 100 mg IVP over 6 hour(s), Site: #1 left hand. Medication Ordered: Thiamine IV 100 mg (100 mg Add to IV solution). Given 15:15 05/24/2017 Pam Tripathi R.N. Medication Administered: ZOFRAN [IVP] (ONDANSETRON HCL), Dose: 4 mg IVP over 2 minute(s), Site: #1 left hand. Medication Ordered: Zofran IV 4 mg (NOW). Given 16:46 05/24/2017 Emerald Bowens R.N. Medication Administered: ATIVAN [IVP] (LORAZEPAM), Dose: 1 mg IVP over 1 minute(s), Site: #1 left hand. Medication Ordered: Ativan IV 0.5 mg (HIGH ALERT MEDICATION, NOW). Given 22:27 05/24/2017 Maty Alas R.N. Medication Administered: XANAX [PO] (ALPRAZOLAM), Dose: 0.5 mg Tablets PO. Medication Ordered: Xanax PO 0.5 mg (NOW). Given 08:30 05/25/2017 Emerald Bowens R.N. Medication Administered: ATIVAN [IVP] (LORAZEPAM), Dose: 0.5 mg IVP over 1 minute(s), Site: #1 left hand. Medication Ordered: Ativan IV 0.5 mg (NOW). Given 10:30 05/25/2017 Emerald Bowens R.N. Medication Administered: ZOFRAN [IVP] (ONDANSETRON HCL), Dose: 4 mg IVP over 1 minute(s), Site: #1 left hand. Medication Ordered: Zofran IV 4 mg (NOW). Given 10:45 05/25/2017 Emerald Bowens R.N. Medication Administered: IBUPROFEN [PO], Dose: 400 mg PO. Medication Ordered: Ibuprofen PO 400 mg (NOW).
== END 2017-05-26 02:30 ==
LOC: ED SRH 17:57
DX: R45.851 Suicidal ideations (principal); F10.220 Alcohol dependence with intoxication, uncomplicated; F10.239 Alcohol dependence with withdrawal, unspecified; F14.14 Cocaine abuse with cocaine-induced mood disorder; G89.21 Chronic pain due to trauma; M79.672 Pain in left foot; Z88.0 Allergy status to penicillin; Z79.899 Other long term (current) drug therapy
CPT/HCPCS: 90004; 90074; 90100; 91227; 91228; 92760; 92761; 92762; 92763; 92764; 92765; 92766; 92767; 92780; 93140; 94060; 95059; 97000